=== PATIENT | female | born 2000 | race Caucasian/White ===

== ENCOUNTER 2020-06-01 21:03 | Emergency (ER) | payer OTHER ==
[~2020-06-01] VITALS: Ht 165.1 cm; Wt 72.1 kg
[2020-06-01] MEDS ORDERED: MEDR150I12 (21:15)
[2020-06-01] MEDS ORDERED: NAPR-885 PO (21:15)
[2020-06-01] MEDS ORDERED: IBUP-1022 PO (21:15)
[2020-06-01 21:46] LABS: BASO % 0.2 % (0.0-1.0); EOS % 0.3 % (0.0-3.0); HEMATOCRIT 42.2 % (36.0-47.0); HEMOGLOBIN 13.4 g/dl (12.0-15.5); LYMPH # 1.3 10^3/uL (1.5-5.0); LYMPH % 9.1 % (24.0-44.0); MEAN CORPUSCULAR HEMOGLOBIN 27.9 pg (27.0-33.0); MEAN CORPUSCULAR HGB CONC 31.8 g/dl (32.0-36.5); MEAN CORPUSCULAR VOLUME 87.9 fl (80.0-96.0); MONO # 1.4 10^3/uL (0.0-0.8); MONO % 10.2 % (2.0-8.0); NEUTROPHILS # 11.2 10^3/uL (1.5-8.5); NEUTROPHILS % 79.6 % (36.0-66.0); PLATELET COUNT, AUTOMATED 237 10^3/uL (150-450); WHITE BLOOD COUNT 14.1 10^3/uL (4.0-10.0)
[2020-06-01] MEDS ORDERED: LIDOCAINE 1% SDV 5ML VIAL DILUENT ONE (21:55)
[2020-06-01] MEDS ORDERED: NS 1,000 ML IV ONE (21:55)
[2020-06-01] MEDS ORDERED: cefTRIAXone SOD 2 GM VIAL (J0696 PER 250MG) IM ONE (21:55)
[2020-06-01] MEDS ORDERED: cefTRIAXone SOD 2 GM in D5W MINI-BAG PLUS 50 ML IV ONE (22:15)
[2020-06-01 22:23] LABS: ALBUMIN 4.1 GM/DL (3.2-5.2); BILIRUBIN,DIRECT 0.2 MG/DL (0.0-0.2); BILIRUBIN,TOTAL 0.5 MG/DL (0.2-1.0); TOTAL PROTEIN 7.4 GM/DL (6.4-8.2)
--- NOTE | 2020-06-01 22:30 | REPVR ---
PROCEDURE INFORMATION: Exam: CT Abdomen And Pelvis Without Contrast Exam date and time: 06/01/2020 10:14 PM Age: 19 years old Clinical indication: Abdominal pain; Flank; Right; Additional info: R flank pain, HX R sided stones, fever TECHNIQUE: Imaging protocol: Computed tomography of the abdomen and pelvis without contrast. Radiation optimization: All CT scans at this facility use at least one of these dose optimization techniques: automated exposure control; mA and/or kV adjustment per patient size (includes targeted exams where dose is matched to clinical indication); or iterative reconstruction. COMPARISON: No relevant prior studies available. FINDINGS: Liver: Normal. No mass. Gallbladder and bile ducts: The gallbladder is contracted with no stones. Pancreas: Normal. No ductal dilation. Spleen: Normal. No splenomegaly. Adrenal glands: Normal. No mass. Kidneys and ureters: Small nonobstructing bilateral renal calculi. Probable right renal cyst measuring approximately 9 mm. There is slight right perinephric edema with no significant hydronephrosis. No ureteral calculi are seen. Stomach and bowel: Unremarkable. No obstruction. No mucosal thickening. Appendix: A normal appendix is seen. Intraperitoneal space: Unremarkable. No free air. No significant fluid collection. Vasculature: Unremarkable. No abdominal aortic aneurysm. Lymph nodes: Unremarkable. No enlarged lymph nodes. Urinary bladder: Unremarkable as visualized. Reproductive: Unremarkable as visualized. Bones/joints: Levoscoliosis centered at T12. Soft tissues: Small fat filled umbilical hernia. IMPRESSION: 1. Small nonobstructing bilateral renal calculi. 2. Slight right perinephric edema with no significant hydronephrosis and no ureteral calculi. Findings may reflect a recently passed stone although pyelonephritis may be a consideration. COMMENTS: Consistent with the [employer]'s Incidental Findings Committee white paper (J Am Haylee Radiol 2018): Any incidental renal lesion less than 1 cm or classified as too small to characterize, or any incidental cystic renal lesion characterized as simple-appearing, is likely benign. No follow-up imaging is recommended for these lesions per consensus recommendations based on imaging criteria. Electronically signed by: Benjamin Frank On 06/01/2020 22:30:28 PM
[2020-06-01] MEDS ORDERED: CIPR-249 PO (22:41)
[2020-06-01] MEDS ORDERED: FLOM0.4C39 PO (22:41)
[2020-06-01 23:35] VITALS: BP 121/69
== END 2020-06-01 23:48 | disposition home or self-care (01) ==
LOC: M ED 21:03
DX: N20.0 Calculus of kidney (principal); N10 Acute pyelonephritis; F41.9 Anxiety disorder, unspecified; R30.0 Dysuria
CPT/HCPCS: 74176; 80047; 80076; 81001; 83605; 83690; 84702; 85025; 87088; 87186; 96365; 99284; J0696

== ENCOUNTER → 2020-06-01 | Outpatient (REF) | payer OTHER ==
[~2020-06-01] MED LIST: CIPR-249 PO; FLOM0.4C39 PO; IBUP-1022 PO; MEDR150I12; NAPR-885 PO
[2020-06-01 21:41] LABS: APPEARANCE, URINE HAZY (CLEAR); BACTERIA, URINE AUTO 3+ (NEGATIVE); BILIRUBIN, URINE AUTO NEGATIVE (NEGATIVE); BLOOD, URINE BLOOD 3+ (NEGATIVE); COLOR, URINE YELLOW (YELLOW); GLUCOSE, URINE (UA) AUTO NEGATIVE (NEGATIVE); KETONE, URINE AUTO NEGATIVE (NEGATIVE); LEUKOCYTE ESTERASE, URINE AUTO 2+ (NEGATIVE); MUCUS, URINE SMALL (NEGATIVE); NITRITE, URINE AUTO NEGATIVE (NEGATIVE); PROTEIN, URINE AUTO 1+ mg/dL (NEGATIVE); RBC, URINE AUTO 14 /HPF (0-3); SPECIFIC GRAVITY URINE AUTO 1.004 (1.002-1.035); SQUAMOUS EPITHELIAL CELL UR AU 2 /HPF (0-6); UROBILINOGEN, URINE AUTO 0.2 mg/dL (0.0-2.0); WBC, URINE AUTO 35 /HPF (0-3)
== END ==
LOC: M LAB REF 21:15
PROVIDERS: ATTEND Physician Assistant Medical
DX: R30.0 Dysuria (principal)

== ENCOUNTER 2021-12-14 08:11 | Emergency (ER) | payer MEDICAID, OTHER ==
[~2021-12-14] VITALS: Ht 165.1 cm; Wt 69.9 kg
[2021-12-14] MEDS ORDERED: BLIS1TAB2 (08:20)
[2021-12-14] MEDS ORDERED: NS 1,000 ML IV ONE (08:35)
[2021-12-14] MEDS ORDERED: ONDANSETRON 4MG 2ML VIAL IV ONE (08:35)
[2021-12-14] MEDS ORDERED: KETOROLAC 30 MG/ML 1ML VIAL IV ONE (08:35)
[2021-12-14 09:03] LABS: BASO % 0.4 % (0.0-1.0); EOS # 0.1 10^3/uL (0.0-0.5); EOS % 0.9 % (0.0-3.0); HEMATOCRIT 39.1 % (36.0-47.0); HEMOGLOBIN 13.1 g/dl (12.0-15.5); LYMPH # 1.7 10^3/uL (1.5-5.0); LYMPH % 16.3 % (24.0-44.0); MEAN CORPUSCULAR HEMOGLOBIN 29.6 pg (27.0-33.0); MEAN CORPUSCULAR HGB CONC 33.5 g/dl (32.0-36.5); MEAN CORPUSCULAR VOLUME 88.5 fl (80.0-96.0); MONO # 0.6 10^3/uL (0.0-0.8); MONO % 6.1 % (2.0-8.0); NEUTROPHILS % 75.8 % (36.0-66.0); PLATELET COUNT, AUTOMATED 314 10^3/uL (150-450); RED BLOOD COUNT 4.42 10^6/uL (4.00-5.40); WHITE BLOOD COUNT 10.5 10^3/uL (4.0-10.0)
[2021-12-14] MEDS ORDERED: FLOM0.4C39 PO (11:21)
[2021-12-14] MEDS ORDERED: KETO10TAB PO (11:21)
[2021-12-14] MEDS ORDERED: ONDA4TAB6 PO (11:21)
[2021-12-14 11:38] VITALS: BP 121/72
== END 2021-12-14 11:40 | disposition home or self-care (01) ==
LOC: M ED 08:11
DX: N13.2 Hydronephrosis with renal and ureteral calculous obstruction (principal)
CPT/HCPCS: 74176; 76775; 80047; 81000; 81015; 84702; 85025; 96361; 96374; 96375; 99283; J1885; J2405

== ENCOUNTER → 2022-01-04 | Outpatient (CLI) | payer MEDICAID ==
[~2022-01-04] MED LIST changes: +BLIS1TAB2; +KETO10TAB PO; +ONDA4TAB6 PO
== END ==
LOC: M RAD 15:55 → M LAB 15:55
PROVIDERS: ATTEND Urology
DX: N28.1 Cyst of kidney, acquired (principal)

== ENCOUNTER → 2022-12-07 | Outpatient (REF) | payer OTHER ==
[~2022-12-07] MED LIST changes: +CEFD300C41 PO
== END ==
LOC: M SFHCWAGY 10:14
PROVIDERS: ATTEND Nurse Practitioner Family
DX: Z12.4 Encounter for screening for malignant neoplasm of cervix (principal); Z01.419 Encounter for gynecological examination (general) (routine) without abnormal findings; Z77.9 Other contact with and (suspected) exposures hazardous to health

== ENCOUNTER → 2023-08-29 | Outpatient (CLI) | payer OTHER ==
[~2023-08-29] MED LIST changes: +CEFD1CAP9 PO; -CEFD300C41 PO
== END ==
LOC: M PLALAB 14:08
PROVIDERS: ATTEND Nurse Practitioner Family
DX: Z30.09 Encounter for other general counseling and advice on contraception (principal)

== ENCOUNTER → 2023-08-31 | Outpatient (CLI) | payer OTHER | LOC: M PLALAB 13:31 | PROVIDERS: ATTEND Nurse Practitioner Family | DX: Z30.09 Encounter for other general counseling and advice on contraception (principal) ==

== ENCOUNTER → 2023-10-16 | Outpatient (CLI) | payer OTHER ==
[~2023-10-16] MED LIST changes: +ONDA-282 PO; -ONDA4TAB6 PO
[2023-10-16 16:07] LABS: HEMATOCRIT 40.3 % (36.0-47.0); HEMOGLOBIN 13.2 g/dl (12.0-15.5); MEAN CORPUSCULAR HGB CONC 32.8 g/dl (32.0-36.5); MEAN CORPUSCULAR VOLUME 88.6 fl (80.0-96.0); PLATELET COUNT, AUTOMATED 340 10^3/uL (150-450); RED BLOOD COUNT 4.55 10^6/uL (4.00-5.40); WHITE BLOOD COUNT 10.8 10^3/uL (4.0-10.0)
[2023-10-16 16:48] LABS: HIV 1&2 SCREEN NEGATIVE (NEGATIVE)
[2023-10-16 16:55] LABS: HEPATITIS C VIRUS ABY INDEX < 0.02 INDEX (<0.8)
[2023-10-16 17:45] LABS: GC DNA AMPLIFICATION NEGATIVE (NEGATIVE)
== END ==
LOC: M PLALAB 13:39
PROVIDERS: ATTEND Advanced Practice Midwife
DX: Z34.01 Encounter for supervision of normal first pregnancy, first trimester (principal)

== ENCOUNTER → 2023-12-14 | Outpatient (CLI) | payer OTHER | LOC: M WHC 13:25 | PROVIDERS: ATTEND Obstetrics & Gynecology | DX: Z34.80 Encounter for supervision of other normal pregnancy, unspecified trimester (principal) ==

== ENCOUNTER → 2024-02-08 | Outpatient (CLI) | payer OTHER ==
[2024-02-08 18:04] LABS: HEMATOCRIT 37.9 % (36.0-47.0); HEMOGLOBIN 12.6 g/dl (12.0-15.5); MEAN CORPUSCULAR HGB CONC 33.2 g/dl (32.0-36.5); MEAN CORPUSCULAR VOLUME 87.3 fl (80.0-96.0); PLATELET COUNT, AUTOMATED 316 10^3/uL (150-450); RED BLOOD COUNT 4.34 10^6/uL (4.00-5.40); WHITE BLOOD COUNT 13.1 10^3/uL (4.0-10.0)
[2024-02-08 18:34] LABS: GLUCOSE CHALLENGE TEST 1 HOUR 104 MG/DL (LESS THAN 140)
[2024-02-08 19:00] LABS: HIV 1&2 SCREEN NEGATIVE (NEGATIVE)
[2024-02-08 19:09] LABS: HEPATITIS C VIRUS ABY INDEX < 0.02 INDEX (<0.8)
[2024-02-08 20:17] LABS: GC DNA AMPLIFICATION NEGATIVE (NEGATIVE)
== END ==
LOC: M PLALAB 14:14
PROVIDERS: ATTEND Obstetrics & Gynecology
DX: Z34.92 Encounter for supervision of normal pregnancy, unspecified, second trimester (principal)

== ENCOUNTER → 2024-04-07 | Outpatient (REF) | payer OTHER | LOC: M SFHCWAGY 12:35 | PROVIDERS: ATTEND Specialist | DX: Z34.03 Encounter for supervision of normal first pregnancy, third trimester (principal) ==

== ENCOUNTER 2024-04-23 17:11 | Outpatient (CLI) | payer OTHER ==
[~2024-04-23] VITALS: Ht 165.1 cm; Wt 75.4 kg
[2024-04-23 17:28] VITALS: BP 136/85
[2024-04-23] MEDS ORDERED: HOME MED LIST COMPLETE! XX SCH (17:35)
== END 2024-04-23 20:50 | disposition home or self-care (01) ==
LOC: M LDO 17:11
PROVIDERS: ATTEND Advanced Practice Midwife
DX: O47.1 False labor at or after 37 completed weeks of gestation (principal); Z3A.38 38 weeks gestation of pregnancy; Z14.1 Cystic fibrosis carrier
CPT/HCPCS: 59025; G0463

== ENCOUNTER 2024-04-24 22:45 | Inpatient (IN) | payer OTHER ==
[~2024-04-24] VITALS: Ht 165.1 cm; Wt 75.2 kg
[2024-04-24 23:22] VITALS: BP 123/71
[2024-04-24] MEDS ORDERED: METHYLERGONOVINE MALEATE 0.2MG/ML 1ML VIAL IM PRN (23:25)
[2024-04-24] MEDS ORDERED: OXYTOCIN INJ 10UNITS/ML 1ML VIAL IM PRN (23:25)
[2024-04-24] MEDS ORDERED: TRANEXAMIC ACID INJection 1,000 MG in NS 100 ML IV PRN (23:25)
[2024-04-24] MEDS ORDERED: OXYTOCIN DRIP 30 UNITS in IV 1 EA IV PRN (23:25)
[2024-04-24] MEDS ORDERED: LIDOCAINE 1% MDV 20ML VIAL INFIL PRN (23:25)
[2024-04-24] MEDS: LACTATED RINGER'S 1000 ML IV STA (23:40)
[2024-04-24 23:56] LABS: HEMATOCRIT 41.7 % (36.0-47.0); HEMOGLOBIN 14.5 g/dl (12.0-15.5); MEAN CORPUSCULAR HGB CONC 34.8 g/dl (32.0-36.5); MEAN CORPUSCULAR VOLUME 86.3 fl (80.0-96.0); PLATELET COUNT, AUTOMATED 266 10^3/uL (150-450); RED BLOOD COUNT 4.83 10^6/uL (4.00-5.40); WHITE BLOOD COUNT 16.7 10^3/uL (4.0-10.0)
[2024-04-25] VITALS (33 sets, daily range): BP systolic 96–140; BP diastolic 54–100; TEMP 99.2; O2SAT 96–99
[2024-04-25] MEDS ORDERED: NALOXONE INJ 0.4MG/1ML VIAL IV PRN (00:05)
[2024-04-25] MEDS ORDERED: diphenhydrAMINE 50MG/ML VIAL IV PRN (00:05)
[2024-04-25] MEDS ORDERED: EPIDURAL/PCA KEYS XX PRN (00:05)
[2024-04-25] MEDS ORDERED: ONDANSETRON 4MG 2ML VIAL IV PRN (00:05)
[2024-04-25] MEDS ORDERED: LR 500 ML IV PRN (00:05)
[2024-04-25] MEDS ORDERED: ePHEDrine SULFATE 25 MG/5 ML(5MG/ML) SYRINGE IVP PRN (00:05)
[2024-04-25] MEDS: FENTANYL/ROPIVACAINE/NACL BAG 100 ML EPIDURAL SCH (00:31)
[2024-04-25 00:35] LABS: HIV 1&2 SCREEN NEGATIVE (NEGATIVE)
[2024-04-25] MEDS: LR 1,000 ML IV SCH (00:35)
[2024-04-25 00:42] LABS: HEPATITIS C VIRUS ABY INDEX < 0.02 INDEX (<0.8)
[2024-04-25] MEDS: OXYTOCIN DRIP 30 UNITS in IV 1 EA IV PRN (04:33)
[2024-04-25] MEDS ORDERED: METHYLERGONOVINE MALEATE 0.2 MG TAB PO PRN (05:05)
[2024-04-25] MEDS ORDERED: RHOGAM 300MCG (1500IU) INJ IM SCH (05:05)
[2024-04-25] MEDS ORDERED: IBUPROFEN 800 MG TAB PO PRN (05:05)
[2024-04-25] MEDS ORDERED: ACETAMINOPHEN 325 MG TAB PO PRN (05:05)
[2024-04-25] MEDS ORDERED: IBUPROFEN 600MG TAB PO PRN (05:05)
[2024-04-25] MEDS: PRENATAL VITAMINS CHEWABLE TABLET PO SCH (08:14)
[2024-04-25] MEDS: DIBUCAINE 1% OINTMENT 30GM TOP PRN (08:15)
[2024-04-25] MEDS: ACETAMINOPHEN 500 MG TAB PO PRN (14:30)
[2024-04-25] MEDS ORDERED: ACETAMINOPHEN 325MG/10.15ML UDC PO PRN (14:40)
[2024-04-25] MEDS: ACETAMINOPHEN 325MG/10.15ML UDC PO PRN (16:20)
[2024-04-26 06:00] VITALS: BP 108/56; O2SAT 98
[2024-04-26] MEDS: DOCUSATE SODIUM 100MG CAPSULE PO PRN (08:03)
[2024-04-26 09:20] VITALS: O2SAT 99
[2024-04-26 18:00] VITALS: BP 108/67; O2SAT 97
[2024-04-27 06:00] VITALS: BP 98/66; O2SAT 100
[2024-04-27] MEDS: MEASLES,MUMPS,RUBELLA VACCINE INJ (MMR-II) SC.IMMUN ONE (09:36)
== END 2024-04-27 15:40 | disposition home or self-care (01) | DRG 560 ==
LOC: M LDO 22:45 → M LDI 23:04 → M OBS 04-25 06:13
PROVIDERS: ADMIT Advanced Practice Midwife; ATTEND Advanced Practice Midwife
PROC: 10E0XZZ Delivery of Products of Conception, External Approach (ICD-10-PCS; principal; 2024-04-25)
PROC: 0HQ9XZZ Repair Perineum Skin, External Approach (ICD-10-PCS; 2024-04-25)
PROC: 10907ZC Drainage of Amniotic Fluid, Therapeutic from Products of Conception, Via Natural or Artificial Opening (ICD-10-PCS; 2024-04-25)
DX: O70.0 First degree perineal laceration during delivery (principal); Z37.0 Single live birth; Z3A.38 38 weeks gestation of pregnancy

== ENCOUNTER → 2025-01-16 | Outpatient (REF) | payer OTHER ==
[~2025-01-16] MED LIST changes: -FLOM0.4C39 PO; -IBUP-1022 PO; +IBUP600T42 PO; -MEDR150I12; +MEDR150I15; +TAMS-18 PO
== END ==
LOC: M SFHCWAGY 17:27
PROVIDERS: ATTEND Advanced Practice Midwife
DX: Z12.4 Encounter for screening for malignant neoplasm of cervix (principal)